=== PATIENT | female | born 1990 | race Caucasian/White ===

== ENCOUNTER 2019-03-16 01:02 | Inpatient (IN) | payer BC ==
[2019-03-16] MEDS ORDERED: METHYLERGONOVINE 0.2MG/ML AMP IM PRN (07:51)
[2019-03-16] MEDS ORDERED: BUTORPHANOL 1 MG/ML INJ IV PRN (07:51)
[2019-03-16] MEDS ORDERED: PROMETHAZINE 25 MG/ML VIAL IV PRN (07:51)
[2019-03-16] MEDS ORDERED: Ringers Lactate 1,000 ML IV PRN (07:51)
[2019-03-16] MEDS ORDERED: CARBOPROST TROME 250 MCG/ML IM PRN (07:51)
[2019-03-16] MEDS ORDERED: Ringers Lactate 1,000 ML IV SCH (08:00)
[2019-03-16] MEDS ORDERED: OXYTOCIN/LR 20 UNIT/1,000 ML BAG IV SCH (08:00)
[2019-03-16 08:14] LABS: RPR Titer ND
[2019-03-16 08:18] LABS: Urine Appearance CLOUDY; Urine Blood TRACE (NEG); Urine Color DK YELLOW; Urine Glucose NEGATIVE (NEG); Urine Protein 1+ (NEG); Urine Specific Gravity >=1.030 (1.005-1.030)
[2019-03-16 08:25] LABS: Absolute Lymphocytes (CBC) 2.1 K/uL (0.7-4.9); Basophils % 0.3 % (0-1.3); Eosinophils % 0.8 % (0-4.4); Hematocrit 34.4 % (36.0-45.0); Lymphocytes % 19.4 % (15.3-44.8); MPV 10.2 fL (7.6-11.3); Monocytes % 7.3 % (3.3-12.3); RBC Red Blood Cell Count 4.26 M/uL (3.86-4.86)
[2019-03-16 08:27] LABS: Urine Bilirubin 1+ (NEG); Urine Microscopic Reflex ORDER UMIC
[2019-03-16 08:32] LABS: Urine Bacteria >50 /HPF (<20); Urine Culture Reflex Order NOT NEEDED; Urine Mucus MOD /HPF (NONE SEEN); Urine RBC <5 /HPF (NONE SEEN)
[2019-03-16 09:10] VITALS: BMI 38.2
[2019-03-16] MEDS ORDERED: ROPIVACAINE HCL 100 ML IV PRN (15:46)
[2019-03-16] MEDS ORDERED: FENTANYL CITR 100 MCG/2 ML IV ONE (15:51)
[2019-03-16] MEDS ORDERED: FENTANYL CITR 100 MCG/2 ML ONE (16:04)
[2019-03-16] MEDS ORDERED: ROPIVACAINE HCL 100 ML IV ONE (16:05)
[2019-03-16] MEDS ORDERED: NA CIT/CITRIC AC 30 ML ORAL UDC PO ONE (19:28)
[2019-03-16] MEDS ORDERED: CARBOPROST TROME 250 MCG/ML IM ONE ×2 (19:35→20:06)
[2019-03-16] MEDS ORDERED: METHYLERGONOVINE 0.2MG/ML AMP IM ONE (19:35)
[2019-03-16] MEDS ORDERED: CEFAZOLIN 2 GM in NA CHLORIDE 0.9% 100 ML IVPB ONE (19:44)
[2019-03-16] MEDS ORDERED: METOCLOPRAMIDE 10 MG/2mL INJ IV SCH (20:00)
[2019-03-16] MEDS ORDERED: FAMOTIDINE 20 MG/2 ML VIAL IV ONE (20:05)
[2019-03-16] MEDS ORDERED: CEFAZOLIN/SWI 2gm 2 GM/20 ML SYR ONE (20:05)
[2019-03-16] MEDS ORDERED: ONDANSETRON 4 MG/2 ML VIAL ONE ×2 (20:42→21:19)
[2019-03-16] MEDS ORDERED: MORPHINE SULFATE/PF 1 MG/ML (10 ML AMP) ONE (20:53)
[2019-03-16] MEDS ORDERED: OXYTOCIN 10 UNIT/ML ML IV ONE (20:54)
[2019-03-16] MEDS ORDERED: BISACODYL 10 MG RECTAL SUPP RECT PRN (21:16)
[2019-03-16] MEDS ORDERED: Oxycodone HCl/Acetaminophen 1 TAB TAB PO PRN ×2 (21:16)
[2019-03-16] MEDS ORDERED: METHYLERGONOVINE 0.2 MG TAB PO PRN (21:16)
[2019-03-16] MEDS ORDERED: ACETAMINOPHEN 500 MG TAB PO PRN (21:16)
[2019-03-16] MEDS ORDERED: DOCUSATE NA/SENNA CONC 1 TAB PO PRN (21:16)
--- NOTE | 2019-03-16 22:17 | P.OP ---
Home Health Rn: Hai Ravi Preoperative diagnosis: Term , arrest of labor, category 2 tracing remote from delivery Postoperative diagnosis: same Primary procedure: Primary low transverse section Anesthesia: Epidural Estimated blood loss: 800cc Specimen: cord blood, placenta Findings: viable male infant cephalic, APGARS 7/9, weight 7lb 4 oz Operative Technique: The patient was taken to the operating room where epidural anesthesia was reinforced without difficulty. The patient was prepped and draped in the usual sterile fashion in the dorsal supine position with a leftward tilt. A Pfannenstiel skin incision was made with the scalpel and carried through to the underlying layer of fascia using the scalpel. The fascia was incised in the midline and extended laterally using Graham scissors. Rene clamps were used to elevate the superior aspect of the fascial incision, which was elevated, and the underlying rectus muscles were dissected off bluntly and using Graham scissors. Attention was then turned to the inferior aspect of the fascial incision, which in similar fashion was grasped with Rene clamps, elevated, and the underlying rectus muscles were dissected off bluntly and using the Bovie. The rectus muscles were dissected in the midline. The peritoneum was identified and entered using Metzenbaum scissors; this incision was extended superiorly and inferiorly with good visualization of the bladder. The bladder blade was inserted. The vesicouterine peritoneum was identified and entered sharply using Metzenbaum scissors. This incision was extended laterally and the bladder flap was created digitally. The bladder blade was reinserted. The lower uterine segment was incised in a transverse fashion using the scalpel and extended using bandage scissors as well as manual traction. Clear fluid was noted. The infant was subsequently delivered. The nose and mouth were bulb suctioned. The cord was clamped and cut. The infant was subsequently handed to the awaiting nursery nurse. The placenta was delivered spontaneously intact with a three-vessel cord noted. The uterus was exteriorized and cleared of all clots and debris. The uterine incision was repaired in 2 layers using 0 vicryol sutures. Hemostasis was visualized. The vesical uterine peritoneum was reapproximated with 3 O Vicryl. The uterus was returned to the abdomen. The uterine incision was reexamined and it was noted to be hemostatic. The rectus muscles were reapproximated in the midline using 0 Vicryl. The fascia was closed with 1 Vicryl suture, the subcutaneous layer was closed with 2-0 plain gut, and the skin was closed with 3 O Vicryl on a Jose needle. Sponge, lap, and instrument counts were correct x2. The patient was stable at the completion of the procedure and was subsequently transferred to the recovery room in stable condition. Complications: None Drain(s): Urinary catheter Transferred to: Recovery Room Condition: Good
[2019-03-17] MEDS: KETOROLAC 30 MG/ML INJ IV PRN ×3 (02:13→14:09)
[2019-03-17 04:55] LABS: Absolute Lymphocytes (CBC) 1.1 K/uL (0.7-4.9); Basophils % 0.2 % (0-1.3); Hematocrit 31.5 % (36.0-45.0); Lymphocytes % 7.2 % (15.3-44.8); MPV 10.2 fL (7.6-11.3); Monocytes % 6.2 % (3.3-12.3); RBC Red Blood Cell Count 3.94 M/uL (3.86-4.86)
[2019-03-17] MEDS ORDERED: OXYTOCIN/LR 20 UNIT/1,000 ML BAG IV ONE (05:19)
[2019-03-17 05:24] LABS: Blood Morphology Comment NOT SEEN (NOT SEEN); Platelet Estimate ADEQ
[2019-03-17] MEDS ORDERED: NS 0.9% VIAL 10 ML ONE (08:07)
[2019-03-17 10:19] VITALS: O2SAT 96
[2019-03-17 14:41] LABS: RPR (Rapid Plasma Reagin) NON-REACT (NON-REACT)
[2019-03-17] MEDS ORDERED: FAMOTIDINE 20 MG/2 ML VIAL IV ONE (19:29)
[2019-03-18] MEDS: IBUPROFEN 400 MG TAB PO PRN ×2 (05:25→12:25)
[2019-03-18] MEDS ORDERED: Ringers Lactate 1,000 ML IV ONE (06:53)
[2019-03-18 07:45] VITALS: BP 144/79; TEMP 98.5
--- NOTE | 2019-03-18 10:54 | P.PN ---
Date of Service: 03/17/19
[2019-03-18 17:42] LABS: HBsAG Nonreactive (Nonreactive)
== END 2019-03-18 12:40 | disposition home or self-care (01) | DRG 788 ==
LOC: L&D 01:02 → EDSTATUS 01:19 → 2ND-WC 07:09
PROVIDERS: ADMIT Student in an Organized Health Care Education/Training Program; ATTEND Student in an Organized Health Care Education/Training Program
PROC: 10D00Z1 Extraction of Products of Conception, Low, Open Approach (ICD-10-PCS; principal; 2019-03-16 20:39)
DX: O13.4 Gestational [pregnancy-induced] hypertension without significant proteinuria, complicating childbirth (principal); O62.1 Secondary uterine inertia; O36.8930 Maternal care for other specified fetal problems, third trimester, not applicable or unspecified; O99.214 Obesity complicating childbirth; E66.9 Obesity, unspecified; Z3A.38 38 weeks gestation of pregnancy; Z37.0 Single live birth
CPT/HCPCS: 36415; 81003; 81015; 85025; 86592; 86850; 86900; 86901; 87340; 88307; J0690; J2210; J2405; J2550; J2590; J2765; J2795; J3010